=== PATIENT | female | born 1970 | race Caucasian/White ===

== ENCOUNTER 2022-09-01 09:20 | Emergency (ER) | payer MEDICARE, OTHER ==
[~2022-09-01] VITALS: Ht 170.2 cm; Wt 63.8 kg
[2022-09-01] MEDS ORDERED: HYDROcodone-ACET 10/325MG TAB PO ONE (10:30)
[2022-09-01] MEDS ORDERED: HYDR-4902 PO ×2 (10:35→17:45)
[2022-09-01 10:50] VITALS: BP 119/71
[2022-09-01 10:56] LABS: Urine Bacteria FEW /hpf (None Seen); Urine Blood 2+ /uL (Negative); Urine Mucus FEW (None Seen); Urine Specific Gravity 1.028 (1.001-1.035); Urine WBC 55 /hpf (0 - 5)
== END 2022-09-01 10:51 | disposition home or self-care (01) ==
LOC: ER 09:20
DX: S33.5XXA Sprain of ligaments of lumbar spine, initial encounter (principal); Z90.710 Acquired absence of both cervix and uterus; X50.0XXA Overexertion from strenuous movement or load, initial encounter; Y93.89 Activity, other specified; Y92.89 Other specified places as the place of occurrence of the external cause; Y99.8 Other external cause status
CPT/HCPCS: 72100; 81001